=== PATIENT | male | born 1985 | race Caucasian/White ===

== ENCOUNTER 2019-03-11 21:40 | Emergency (ER) | payer BC, MEDICAID, MEDICARE ==
--- NOTE | 2019-03-11 21:54 | ED Physician Documentation ---
PD HPI ABD PAIN - Stated complaint Stated Complaint: ABD PX/MALE - Chief complaint Chief Complaint: Abd Pain - History obtained from History obtained from: Patient - History of Present Illness Timing - onset: How many days ago (5) Timing - duration: Days (5) Timing - details: Abrupt onset, Now resolved (improved just as was giving urine sample here in ER. [place] a plunk in the container as he was urinating, and says the pain started easing well just after that.), Waxing and waning Quality: Aching, Sharp, Pain Location: LLQ Radiation: No: Left flank, Right flank Improved by: No: Eating, BM Worsened by: No: Eating Associated symptoms: No: Fever, Nausea, Diarrhea, Dysuria, Hematuria (but says it seemed darker urine than usual.) Similar symptoms before: Has not had sx before Recently seen: Not recently seen Review of Systems Constitutional: denies: Fever, Chills, Myalgias Nose: denies: Rhinorrhea / runny nose, Congestion Throat: denies: Sore throat Respiratory: denies: Cough GI: reports: Abdominal Pain (for 5 days, with episodes of marked severity for 20-30 minutes, but then improves to dull ache. Today had marked increase of LLQ pain, worse than prior, so in to ER for evaluation.), Nausea (with the pain when worst). denies: Vomiting : denies: Dysuria, Frequency Skin: denies: Rash, Lesions PD PAST MEDICAL HISTORY - Past Medical History Cardiovascular: None Respiratory: None Neuro: None Endocrine/Autoimmune: None GI: None : None - Allergies Allergies/Adverse Reactions: Allergies Allergy/AdvReac Type Severity Reaction Status Date / Time No Known Drug Allergies Allergy Verified 03/11/19 21:43 PD ED PE NORMAL - Vitals Vital signs reviewed: Yes - General General: Alert and oriented X 3, No acute distress, Well developed/nourished - HEENT HEENT: Moist mucous membranes, Pharynx benign - Neck Neck: Supple, no meningeal sign, No adenopathy - Cardiac Cardiac: RRR, No murmur - Respiratory Respiratory: Clear bilaterally - Abdomen Abdomen: Normal bowel sounds, Soft, Non distended, No organomegaly, Other - Male Male : Deferred - Rectal Rectal: Deferred - Back Back: No CVA TTP - Derm Derm: Normal color, Warm and dry Results - Vitals Vitals: Vital Signs - 24 hr 03/11/19 03/11/19 03/11/19 21:43 21:53 23:33 Temperature 36.7 C 36.6 C Heart Rate 80 91 Respiratory 16 17 16 Rate Blood Pressure 133/85 H 129/85 H O2 Saturation 100 100 Oxygen O2 Source Room air - Labs Labs: Laboratory Tests 03/11/19 21:40 Urine Color YELLOW Urine Clarity HAZY Urine pH 6.5 Ur Specific [place] 1.010 Urine Protein TRACE Urine Glucose (UA) NEGATIVE Urine Ketones NEGATIVE Urine Occult Blood LARGE H Urine Nitrite NEGATIVE Urine Bilirubin NEGATIVE Urine Urobilinogen 0.2 (NORMAL) Ur Leukocyte Esterase NEGATIVE Urine RBC TNTC H Urine WBC 0-3 Ur Squamous Epith Cells NONE SEEN Urine Bacteria None Seen Ur Microscopic Review INDICATED Urine Culture Comments NOT INDICATED PD MEDICAL DECISION MAKING - ED course Complexity details: reviewed results (Mildly dilated left hydronephrosis without any stones visible in the ureter consistent with recently passed stone. This would be consistent with his history of a small object passing out in his urine just here in the ER with improvement of pain. There is a another embedded stone in the left kidney that does not look anywhere that would be giving symptoms.), considered differential, d/w patient Departure - Departure Disposition: 01 Home, Self Care Clinical Impression: Renal colic Condition: Stable Record reviewed to determine appropriate education?: Yes Instructions: ED Stone Renal Passed Comments: Stay well-hydrated. Tylenol ibuprofen or naproxen if needed for pains. Your CT scan shows a little bit of swelling of the left kidney but no signs of stones in the ureter. This would be suggestive of the recently passed stone. It does look to be all past at this point so he may have some mild pains and cramps for a couple of days and some blood in the urine still. However he should taper down and improve over a few days and be mild. There is another stone in the left kidney deep within the kidney. This is not going to give you any symptoms at this point. There may or may not pass out from the kidney and give you a problem in the future. Many of these stay present in the kidney for years and years. Discharge Date/Time: 03/11/19 23:34
[2019-03-11 21:55] LABS: BILIRUBIN,URINE NEGATIVE (NEGATIVE); GLUCOSE, URINE (UA) NEGATIVE (NEGATIVE); KETONES,URINE (UA) NEGATIVE (NEGATIVE); LEUKOCYTE ESTERASE, URINE NEGATIVE (NEGATIVE); NITRITE,URINE NEGATIVE (NEGATIVE); OCCULT BLOOD,URINE LARGE (NEGATIVE); PH,URINE 6.5 PH (5.0-7.5); PROTEIN,URINE TRACE mg/dL (NEGATIVE); UROBILINOGEN,URINE 0.2 (NORMAL) E.U./dL (NORMAL)
[2019-03-11 21:57] LABS: CLARITY,URINE HAZY (CLEAR)
[2019-03-11 22:11] LABS: BACTERIA,URINE None Seen /HPF (None Seen); RBC,URINE TNTC /HPF (0-5); SQUAMOUS EPITHELIAL CELL,UR NONE SEEN (<= Few)
--- NOTE | 2019-03-11 22:57 | CT Report ---
Reason: left abd pain and hematuria Procedure Date: 03/11/2019 Accession Number: [id number] / [id number] Procedure: CT - Abdomen/Pelvis WO CPT Code: FULL RESULT: EXAM: CT ABDOMEN AND PELVIS (CT KUB) EXAM DATE: 03/11/2019 10:47 PM. CLINICAL HISTORY: Left abdominal pain and hematuria. COMPARISONS: None. TECHNIQUE: Routine axial helical CT imaging was performed through the abdomen and pelvis without IV contrast. Reconstructions: Coronal and sagittal. In accordance with CT protocol optimization, one or more of the following dose reduction techniques were utilized for this exam: automated exposure control, adjustment of mA and/or KV based on patient size, or use of iterative reconstructive technique. FINDINGS: Lung Bases: Unremarkable. Right Kidney/Ureter: No stones, hydronephrosis, or hydroureter. No perinephric fat stranding. Left Kidney/Ureter: There is a 5 mm calyceal stone within the mid aspect of the kidney. There is mild left hydroureteronephrosis. No obstructing calculi, however, present. There is slight bladder wall thickening at the vesicoureteral junction likely secondary to edema. Other Solid Organs: Noncontrast images of the solid organs are grossly unremarkable. Gallbladder/Bile Ducts: Unremarkable. Peritoneal Cavity: No free fluid, free air or nishant adenopathy. Bowel is grossly unremarkable. Pelvic Organs: No bladder stones or wall thickening. Noncontrast images of the visualized pelvic organs are unremarkable. Vasculature: Unremarkable. Other: Deformity with advanced degenerative changes and mild superior migration of the left hip. IMPRESSION: 1. Left nephrolithiasis. There is mild dilatation of the left ureter and renal collecting system with no obstructing calculi. This suggests a recently passed stone. 2. Chronic left hip deformity with advanced degenerative changes and mild femoral head superior migration. RADIA
[2019-03-11 23:34] VITALS: BP 129/85
== END 2019-03-11 23:34 | disposition home or self-care (01) ==
LOC: ED 21:40
DX: N13.2 Hydronephrosis with renal and ureteral calculous obstruction (principal)
CPT/HCPCS: 74176; 81001; 81003; 87086; 99283; 99284

== ENCOUNTER 2020-07-17 11:47 | Outpatient (CLI) | payer OTHER ==
--- NOTE | 2020-07-17 13:55 | XRAY Report ---
PROCEDURE: Hip w/Pelvis 2-3V LT INDICATIONS: ARTHROGRYPOSIS, OSTEOARTHRITIS OF HIP TECHNIQUE: AP pelvis with lateral view(s) of the bilateral hip(s). COMPARISON: None. FINDINGS: Bones: No acute fractures or dislocations. Dysplastic appearance of the left femoral head and neck as well as the left acetabulum with associated severe degenerative changes. There is near complete cherelle int space loss as well as subchondral sclerosis and subchondral cystic changes of the femoral head. P elvic ring appears intact. No suspicious bony lesions. Soft tissues: The visualized bowel gas pattern is normal. No suspicious soft tissue calcifications. IMPRESSION: Dysplastic appearance of the left hip with associated severe osteoarthritic changes. Reviewed by: Raul Carson MD on 07/17/2020 1:53 PM PST Approved by: Raul Carson MD on 07/17/2020 1:53 PM PST Station ID: [id number]
== END 2020-07-17 11:48 | disposition home or self-care (01) ==
LOC: DI.S 11:47
PROVIDERS: ATTEND Physician Assistant
DX: Q68.8 Other specified congenital musculoskeletal deformities (principal); M16.7 Other unilateral secondary osteoarthritis of hip

== ENCOUNTER 2021-04-08 18:42 | Outpatient (CLI) | payer OTHER | END 2021-04-08 18:43 | disposition home or self-care (01) | LOC: COV 18:42 | PROVIDERS: ATTEND Family Medicine | DX: R07.0 Pain in throat (principal); R09.81 Nasal congestion; Z20.822 Contact with and (suspected) exposure to COVID-19 ==

== ENCOUNTER 2021-04-17 11:27 | Outpatient (CLI) | payer OTHER ==
[2021-04-17 14:40] LABS: BASOPHILS % (AUTO) 0.3 %; EOSINOPHILS # (AUTO) 0.3 10^3/uL (0.0-0.7); EOSINOPHILS % (AUTO) 3.4 %; HCT - HEMATOCRIT 41.3 % (42.0-52.0); HGB - HEMOGLOBIN 13.3 g/dL (14.0-18.0); LYMPHOCYTES # (AUTO) 1.9 10^3/uL (1.5-3.5); LYMPHOCYTES % (AUTO) 24.6 %; MEAN CORPUSCULAR HEMOGLOBIN 30.3 pg (27.0-31.0); MEAN CORPUSCULAR HGB CONC 32.2 g/dL (32.0-36.0); MEAN CORPUSCULAR VOLUME 94.1 fL (80.0-94.0); MEAN PLATELET VOLUME 9.4 fL (7.4-11.4); MONOCYTES # (AUTO) 0.4 10^3/uL (0.0-1.0); MONOCYTES % (AUTO) 5.4 %; NEUTROPHILS % (AUTO) 65.9 %; PLT - PLATELET COUNT 309 10^3/uL (130-450); RED BLOOD COUNT 4.39 10^6/uL (4.70-6.10); RED CELL DISTRIBUTION WIDTH 14.8 % (12.0-15.0); WHITE BLOOD COUNT 7.6 x10^3/uL (4.8-10.8)
[2021-04-17 15:21] LABS: ALBUMIN 4.1 g/dL (3.2-5.5); ALBUMIN/GLOBULIN RATIO 1.5 (1.0-2.2); BILIRUBIN,TOTAL 0.4 mg/dL (0.2-1.0); CALCIUM 8.9 mg/dL (8.5-10.3); CREATININE 0.6 mg/dL (0.6-1.2); POTASSIUM 3.9 mmol/L (3.5-5.0); TOTAL PROTEIN 6.8 g/dL (6.7-8.2)
[2021-04-17 15:26] LABS: THYROID STIMULATING HORMONE 0.29 uIU/mL (0.34-5.60)
[2021-04-17 16:06] LABS: FREE T4 (FREE THYROXINE) 1.1 ng/dL (0.58-1.64)
== END 2021-04-17 11:28 | disposition home or self-care (01) ==
LOC: LAB.S 11:27
PROVIDERS: ATTEND Physician Assistant
DX: Z01.812 Encounter for preprocedural laboratory examination (principal); R68.89 Other general symptoms and signs
CPT/HCPCS: 36415; 80053; 84439; 84443; 85025

== ENCOUNTER 2022-05-20 13:39 | Outpatient (CLI) | payer OTHER ==
--- NOTE | 2022-05-20 17:31 | XRAY Report ---
PROCEDURE: Ankle 2 View RT INDICATIONS: RIGHT ANKLE PAIN TECHNIQUE: 2 views of the ankle were acquired. COMPARISON: None FINDINGS: Bones: Flattening of the talar dome with tibiotalar joint space and narrowing and remodeling noted. N o evidence of fracture or lytic lesion. Soft tissues: No tibiotalar joint effusion. Achilles tendon appears normal. IMPRESSION: Advanced tibiotalar osteoarthritis Reviewed by: Arturo Macedo MD on 05/20/2022 4:29 PM AKST Approved by: Arturo Macedo MD on 05/20/2022 4:29 PM AKST Station ID: [id number]
== END 2022-05-20 13:40 | disposition home or self-care (01) ==
LOC: DI.S 13:39
PROVIDERS: ATTEND Nurse Practitioner
DX: M19.071 Primary osteoarthritis, right ankle and foot (principal)